=== PATIENT | female | born 1950 | race Caucasian/White ===

== ENCOUNTER → 2018-01-22 07:55 | Outpatient (CLI) | payer MEDICARE, OTHER, SELFPAY ==
[2018-01-22 08:09] VITALS: BP 133/84; PULSE 73; RESP 16; TEMP 36.8; BMI 32.5
[2018-01-22] MEDS: Cosyntropin 0.25 MG Vial IM (08:26)
== END ==
PROVIDERS: Visit Provider Nurse Practitioner
DX: Z79.52 Long term (current) use of systemic steroids (principal)
CPT/HCPCS: 36415; 82533; 96372; J0834

== ENCOUNTER → 2018-03-27 08:00 | Outpatient (CLI) | payer MEDICARE, OTHER, SELFPAY ==
[2018-03-27] MEDS: Cosyntropin 0.25 MG Vial IM (08:19)
[2018-03-27 08:28] VITALS: BP 131/84; PULSE 75; RESP 16; TEMP 36.3; O2SAT 95; BMI 31.4
== END ==
PROVIDERS: Visit Provider Nurse Practitioner
DX: Z79.52 Long term (current) use of systemic steroids (principal)
CPT/HCPCS: 36415; 82533; 96372; J0834